=== PATIENT | male | born 1995 | race Caucasian/White ===

== ENCOUNTER 2022-08-13 18:09 | Emergency (ER) | payer SELFPAY ==
--- NOTE | 2022-08-13 19:15 | ED_ITS ---
HPI - General Adult General Chief complaint: General Medical <EVAN Whitt - Last Filed: 08/13/22 19:27> Stated complaint: lump on neck <EVAN Whitt - Last Filed: 08/13/22 19:27> Time Seen by Provider: 08/13/22 20:34 <EVAN Whitt - Last Filed: 08/13/22 19:27> Source: patient <Elsie Rodriguez MD - Last Filed: 08/13/22 21:55> Mode of arrival: ambulatory <Elsie Rodrigeuz MD - Last Filed: 08/13/22 21:55> History of Present Illness HPI narrative: 27-year-old male presents with 4-5 days of body aches, sore throat, cough, subjective fevers and chills as well as being concerned about a lump at the right lower edge of his jaw that is worse with opening his mouth. <Elsie Rodriguez MD - Last Filed: 08/13/22 21:55> Related Data Allergies/adverse reactions: Allergies Allergy/AdvReac Type Severity Reaction Status Date / Time No Known Allergies Allergy Verified 08/13/22 19:18 <EVAN Whitt - Last Filed: 08/13/22 19:27> Review of Systems Review of Systems: Pertinent positives and negatives as stated in HPI <Elsie Rodriguez MD - Last Filed: 08/13/22 21:55> PMFSH Past Medical History Source: nursing notes reviewed <Elsie Rodriguez MD - Last Filed: 08/13/22 21:55> Medical History: Medical History No pertinent past medical history <EVAN Whitt - Last Filed: 08/13/22 19:27> Social History Social History: Social History Alcohol intake: never Smoked in Last 30 Days: No Use of substances other than those prescribed or required for medical reasons: No Advance Directives: No Advance Directives Information Provided: No <EVAN Whitt - Last Filed: 08/13/22 19:27> Physical Exam ED Vital Signs: Vital Signs - 24 hr 08/13/22 19:16 08/13/22 20:27 Temperature 98.0 F Pulse Rate 85 86 Respiratory Rate 18 Blood Pressure 131/83 121/86 Pulse Oximetry 95 95 Oxygen Delivery Method Room Air Room Air BMI result Body Mass Index 38.7 <EVAN Whitt - Last Filed: 08/13/22 19:27> Vital Signs - 24 hr 08/13/22 19:16 08/13/22 20:27 Temperature 98.0 F Pulse Rate 85 86 Respiratory Rate 18 Blood Pressure 131/83 121/86 Pulse Oximetry 95 95 Oxygen Delivery Method Room Air Room Air BMI result Body Mass Index 38.7 VITAL SIGNS: Reviewed. GENERAL: Well developed, well nourished, in no acute distress. HEAD: Normocephalic/atraumatic EYES: PERRLA, EOMI EARS: Ext canals without abnormality, TMs non-bulging and non-erythematous NOSE: Nares patent bilateral OROPHARYNX: no oral lesions noted, posterior pharynx clear and non-erythematous without noted tonsillar enlargement/erythema/exudates; mild swelling noted at the angle of the right jaw NECK: Supple, no adenopathy LUNGS: Normal breath sounds. No adventitious sounds or accessory muscle use. SpO2<95> CARDIOVASCULAR: Regular rate and rhythm without noted murmurs ABDOMEN: Soft, non-tender, non-distended with bowel sounds. MUSCULOSKELETAL: No tenderness, deformities, or effusions noted on gross inspection. EXTREMITIES: No cyanosis, clubbing or edema. SKIN: Inspection of the skin reveals no rashes NEUROLOGIC: Alert and oriented x 4. Strength and sensation to light touch were grossly intact x 4. <Elsie Rodriguez MD - Last Filed: 08/13/22 21:55> Course Course Course Narrative: RME--27yo M w/ no sig PMHx c/o R neck swelling and pain x2 days. Reports feels like area is growing with pain radiating to R ear. Also reports fever last week R posterior auricular/upper neck swelling/inflamed lymph node noted w/ttp. TMs and mastoids WNL, oropharynx wnl. Talking in complete sentences, no respiratory distress CBC, COVID/flu/rsv and rapid strep ordered <EVAN Whitt - Last Filed: 08/13/22 19:27> Medical Decision Making Medical Decision Making MDM Narrative: 27-year-old male with history and clinical presentation most consistent with viral syndrome and I have interpreted all evaluations and patient is influenza A positive but outside the window of treatment. In addition there is no leukocytosis and suspect that the swelling may be secondary to the viral infection and/or possible sialadenitis. Patient received Tylenol and ibuprofen was discharged home in stable condition. <Elsie Rodriguez MD - Last Filed: 08/13/22 21:55> Differential Diagnosis Differential Diagnoses: The differential diagnosis associated with the presentation includes <Elsie Rodriguez MD - Last Filed: 08/13/22 21:55> Viral syndrome, pharyngitis <Elsie Rodriguez MD - Last Filed: 08/13/22 21:55> Lab Data MDM Lab Attestation statement: I reviewed the patient's lab results. <Elsie Rodriguez MD - Last Filed: 08/13/22 21:55> Please see the discussion above <Elsie Rodriguez MD - Last Filed: 08/13/22 21:55> Result Diagrams: : 08/13/22 19:44 <EVAN Whitt - Last Filed: 08/13/22 19:27> Labs: Lab Results 08/13/22 08/13/22 08/13/22 Range/Units 19:41 19:41 19:44 WBC 7.4 (4.8-10.8) X10*3/uL RBC 5.49 (4.60-5.80) X10*6/uL Hgb 13.7 L (14.0-18.0) g/dl Hct 42.1 (42.0-52.0) % MCV 76.7 L (80.0-98.0) fL MCH 25.0 L (27.0-33.0) pg MCHC 32.5 (31.0-36.0) g/dl RDW 13.3 (11.0-16.0) % Plt Count 197 (160-400) X10*3/uL MPV 9.9 (9.4-12.4) fL Immature Gran % (Auto) 0.3 (0.0-0.4) % Neut % (Auto) 70.9 (45-73) % Lymph % (Auto) 15.7 L (20-40) % [place] % (Auto) 12.4 H (2-11) % Eos % (Auto) 0.4 (0-4) % Baso % (Auto) 0.3 (0-2) % Lymph # (Auto) 1.2 (1.2-4.9) X10*3/uL [place] # (Auto) 0.9 (0.1-1.2) X10*3/uL Eos # (Auto) 0.0 (0.0-0.4) X10*3/uL Baso # (Auto) 0.0 (0.0-0.2) X10*3/uL Abs Immat Gran (auto) 0.02 (0.00-0.03) X10*3/uL Absolute Neuts (auto) 5.2 (2.0-8.3) x10*3/uL Absolute Nucleated RBC 0.000 (0.0-0.012) X10*3/uL Nucleated RBC % (auto) 0.0 (0.0-0.2) /100WBC Influenza Type A (PCR) POSITIVE A (Negative) Influenza Type B (PCR) NEGATIVE (Negative) RSV RNA Qual (PCR) NEGATIVE (Negative) SARS-CoV-2 RNA (RT-PCR) NEGATIVE (Negative) S. pyogenes GrpA POLI Negative (Negative) <EVAN Whitt - Last Filed: 08/13/22 19:27> Lab Results 08/13/22 08/13/22 08/13/22 Range/Units 19:41 19:41 19:44 WBC 7.4 (4.8-10.8) X10*3/uL RBC 5.49 (4.60-5.80) X10*6/uL Hgb 13.7 L (14.0-18.0) g/dl Hct 42.1 (42.0-52.0) % MCV 76.7 L (80.0-98.0) fL MCH 25.0 L (27.0-33.0) pg MCHC 32.5 (31.0-36.0) g/dl RDW 13.3 (11.0-16.0) % Plt Count 197 (160-400) X10*3/uL MPV 9.9 (9.4-12.4) fL Immature Gran % (Auto) 0.3 (0.0-0.4) % Neut % (Auto) 70.9 (45-73) % Lymph % (Auto) 15.7 L (20-40) % [place] % (Auto) 12.4 H (2-11) % Eos % (Auto) 0.4 (0-4) % Baso % (Auto) 0.3 (0-2) % Lymph # (Auto) 1.2 (1.2-4.9) X10*3/uL [place] # (Auto) 0.9 (0.1-1.2) X10*3/uL Eos # (Auto) 0.0 (0.0-0.4) X10*3/uL Baso # (Auto) 0.0 (0.0-0.2) X10*3/uL Abs Immat Gran (auto) 0.02 (0.00-0.03) X10*3/uL Absolute Neuts (auto) 5.2 (2.0-8.3) x10*3/uL Absolute Nucleated RBC 0.000 (0.0-0.012) X10*3/uL Nucleated RBC % (auto) 0.0 (0.0-0.2) /100WBC Influenza Type A (PCR) POSITIVE A (Negative) Influenza Type B (PCR) NEGATIVE (Negative) RSV RNA Qual (PCR) NEGATIVE (Negative) SARS-CoV-2 RNA (RT-PCR) NEGATIVE (Negative) S. pyogenes GrpA POLI Negative (Negative) <Elsie Rodriguez MD - Last Filed: 08/13/22 21:55> Discharge Plan Discharge Clinical Impression: Viral syndrome, Influenza A, Sialadenitis <EVAN Whitt - Last Filed: 08/13/22 19:27> Patient Disposition: Home, Self-Care <EVAN Whitt - Last Filed: 08/13/22 19:27> Instructions: Influenza (ED), Sialoadenitis (ED), Viral Syndrome (ED) <EVAN Whitt - Last Filed: 08/13/22 19:27> Additional Instructions: 1. I recommend [id number] Tylenol/ibuprofen together every 6 hours with milk or food for symptom relief. 2. I recommend warm compresses at the right lower jaw and utilizing sour candies to help alleviate the pain. 3. Follow-up with primary care provider in the next 2-3 days. Return to the ER for worsening symptoms. <EVAN Whitt - Last Filed: 08/13/22 19:27>
[2022-08-13 19:16] VITALS: BP 131/83; PULSE 85; RESP 18; TEMP 36.7; O2SAT 95; BMI 38.7
[2022-08-13 19:49] LABS: MANUAL DIFF FLAG NO
[2022-08-13 19:50] LABS: Basophils Percent Auto 0.3 % (0-2); Eosinophils Percent Auto 0.4 % (0-4); Hematocrit 42.1 % (42.0-52.0); Hemoglobin 13.7 g/dl (14.0-18.0); Imm Gran Abs Auto 0.02 X10*3/uL (0.00-0.03); Imm Gran Pct Auto 0.3 % (0.0-0.4); Lymphocytes Absolute Auto 1.2 X10*3/uL (1.2-4.9); Lymphocytes Percent Auto 15.7 % (20-40); Mean Corpuscular HGB Conc 32.5 g/dl (31.0-36.0); Mean Corpuscular Volume 76.7 fL (80.0-98.0); Mean Platelet Volume 9.9 fL (9.4-12.4); Monocytes Absolute Auto 0.9 X10*3/uL (0.1-1.2); Monocytes Percent Auto 12.4 % (2-11); Neutrophils Absolute Auto 5.2 x10*3/uL (2.0-8.3); Neutrophils Percent Auto 70.9 % (45-73); Platelet Count 197 X10*3/uL (160-400); Red Blood Count 5.49 X10*6/uL (4.60-5.80); Red Cell Distribution Width 13.3 % (11.0-16.0); White Blood Count 7.4 X10*3/uL (4.8-10.8)
[2022-08-13 20:07] LABS: IDNOW Serial# 6674DD1D; Strep A Nucleic Acid Negative (Negative)
[2022-08-13 20:27] VITALS: BP 121/86; PULSE 86; O2SAT 95
[2022-08-13 20:28] LABS: Influenza A PCR POSITIVE (Negative); Influenza B PCR NEGATIVE (Negative); Resp Syncy Virus RNA Qual PCR NEGATIVE (Negative); SARS COV2 PCR INHOUSE NEGATIVE (Negative)
--- NOTE | 2022-08-13 20:35 | PC.NURSE ---
patient a&ox3 pt c/o 8-04/20 rt jaw/below ear pain, swelling noted in the area, pt denies tooth pain on that side. vitals stable, family at bedside, will continue to monitor
== END 2022-08-13 21:55 | disposition home or self-care (01) ==
PROVIDERS: Physician Assistant; Emergency Provider Student in an Organized Health Care Education/Training Program
DX: B34.9 Viral infection, unspecified (principal); J11.1 Influenza due to unidentified influenza virus with other respiratory manifestations; K11.20 Sialoadenitis, unspecified
CPT/HCPCS: 0241U; 85025; 87651; 99283; 99284